=== PATIENT | male | born 1990 | race Two or more races ===

== ENCOUNTER 2021-07-07 10:09 | Emergency (ER) | payer OTHER ==
[~2021-07-07] VITALS: Ht 170.2 cm; Wt 68.0 kg
[2021-07-07 10:14] VITALS: BP 115/80
--- NOTE | 2021-07-07 10:15 | NUR ---
To ER bed 19, c/o fever and cough, "Diagnosed with COVID last Sunday. aaox3, breathing even and non labored
--- NOTE | 2021-07-07 12:05 | NUR ---
Patient discharged to home in stable condition. Written and verbal after care instructions given. Patient verbalizes understanding of instruction.
== END 2021-07-07 12:05 | disposition home or self-care (01) ==
LOC: ER 10:14
DX: U07.1 COVID-19 (principal)
CPT/HCPCS: 71045-TC